=== PATIENT | female | born 1975 | race Caucasian/White ===

== ENCOUNTER 2024-02-26 08:36 | Emergency (ER) | payer MEDICAID ==
[~2024-02-26] VITALS: Ht 157.5 cm; Wt 77.1 kg
[~2024-02-26 08:36] MED LIST: NO MEDS
[2024-02-26 08:39] VITALS: O2SAT 98
[2024-02-26] MEDS ORDERED: DIPHENHYDRAMINE 50MG CAPSULE PO ONE (09:00)
[2024-02-26] MEDS: PREDNISONE 20MG TABLET PO ONE (09:10)
[2024-02-26] MEDS: FAMOTIDINE 20MG TABLET PO ONE (09:10)
[2024-02-26] MEDS: DIPHENHYDRAMINE 25MG CAPSULE PO SCH (09:15)
[2024-02-26] MEDS ORDERED: P20 MT (12:36)
[2024-02-26] MEDS ORDERED: DIPH25CA83 MT (12:36)
[2024-02-26] MEDS ORDERED: FAMO-135 MT (12:36)
[2024-02-26 12:57] VITALS: BP 98/70; PULSE 76; RESP 16; TEMP 36.94740; O2SAT 99
== END 2024-02-26 13:04 | disposition home or self-care (01) ==
LOC: ER 08:36
DX: T78.40XA Allergy, unspecified, initial encounter (principal); X58.XXXA Exposure to other specified factors, initial encounter
CPT/HCPCS: 99283; Q0163; J7512; Z7610 ×2